=== PATIENT | male | born 1960 | race Caucasian/White ===

== ENCOUNTER 2017-12-17 11:46 | Emergency (ER) | payer OTHER ==
--- NOTE | 2017-12-17 12:21 | ERPHSYRPT ---
- History of Present Illness Time Seen by Provider: 12/17/17 12:13 Patient Subjective Stated Complaint: PT states "I was walking down stairs and felt a pop and stumbled three steps then I could not stand." Triage Nursing Assessment: PT alert and oriented X 3, skin pwd. PT has deformity noted to left knee, CSM X 4. Pt last ate a cupcake this morning and had a cup of coffee. Physician History: patient arrives with complaint of pain some stairs at work this occurred approximately one hour ago Method of Injury: other (walking down stairs heard a pop) Occurred: just prior to arrival (one hour prior to arrival) Lower Extremities Pain: knee: left Associated Symptoms: unable to bear weight Allergies/Adverse Reactions: No Known Drug Allergies Allergy (Unverified 12/17/17 12:09) Home Medications: No Reportable Medications [No Reported Medications] 12/17/17 [History] Hx Tetanus, Diphtheria Vaccination/Date Given: No Hx Influenza Vaccination/Date Given: No Hx Pneumococcal Vaccination/Date Given: No Immunizations Up to Date: Yes - Review of Systems Constitutional: No Fever, No Chills Eyes: No Symptoms Ears, Nose, & Throat: No Symptoms Respiratory: No Cough, No Dyspnea Cardiac: No Chest Pain, No Edema, No Syncope Abdominal/Gastrointestinal: No Abdominal Pain, No Nausea, No Vomiting, No Diarrhea Genitourinary Symptoms: No Dysuria Musculoskeletal: Joint Pain (left knee pain and swelling) Skin: No Rash Neurological: No Dizziness, No Focal Weakness, No Sensory Changes Psychological: No Symptoms Endocrine: No Symptoms All Other Systems: Reviewed and Negative - Past Medical History Pertinent Past Medical History: No - Past Surgical History Past Surgical History: Yes Other Surgical History: left hip, plate put in - Social History Smoking Status: Never smoker Exposure to second hand smoke: Yes Drug Use: none Patient Lives Alone: No - Nursing Vital Signs Nursing Vital Signs: Initial Vital Signs Temperature 97.8 F 12/17/17 12:01 Pulse Rate 74 12/17/17 12:01 Respiratory Rate 18 12/17/17 12:01 Blood Pressure 96/71 12/17/17 12:01 O2 Sat by Pulse Oximetry 98 12/17/17 12:01 Pain Scale Pain Intensity 6 - Physical Exam General Appearance: mild distress Eyes, Ears, Nose, Throat Exam: moist mucous membranes Neck Exam: non-tender, supple Cardiovascular/Respiratory Exam: chest non-tender, normal breath sounds, regular rate/rhythm, no respiratory distress Gastrointestinal/Abdominal Exam: non-tender, guarding Back Exam: normal inspection, No vertebral tenderness Hips Exam: bilateral: non-tender, normal inspection, normal range of motion, no evidence of injury Legs Exam: bilateral leg: non-tender, normal inspection, normal range of motion , no evidence of injury Knees Exam: right knee: non-tender, normal inspection, normal range of motion, no evidence of injury, left knee: bone tenderness (left knee tender anteriorly) , pain (pain with palpation left knee anteriorly), swelling (edema overlying left patella) Ankle Exam: bilateral ankle: non-tender, normal inspection, normal range of motion, no evidence of injury Foot Exam: bilateral foot: non-tender, normal inspection, normal range of motion , no evidence of injury Neuro/Tendon Exam: normal sensation Mental Status Exam: alert, oriented x 3, cooperative Skin Exam: normal color, warm, dry SpO2 Interpretation: normal (98%), borderline oxygenation SpO2: 98 Oxygen Delivery: Room Air - Course Nursing assessment & vital signs reviewed: Yes - Radiology Exams Left Knee X-ray Interpretation: Discussed w/ radiologist (three-view left knee: Minimal medial joint space narrowi tiny patellar spurring, tiny posterior fabella, no other bony, articular, or soft tissue abnormalities) Left Patella X-ray Interpretation: Discussed w/ radiologist ([place] viewof the left knee demonstrates lateral patellar tilting, shallow medial femoral groove, and prepatellar soft tissue swelling. No other bony, articular, or soft tissue abnormalities) Left Elbow X-ray Interpretation: Discussed w/ radiologist (x-ray left elbow: Small olecranon process spurring and lesser degree coronoid process. Posterior soft tissue swelling and a few soft tissue calcification posterior to the distal humerus of uncertain etiology. No other bony, articular, or soft tissue abnormalities ) Ordered Tests: Active Orders 24 hr Category Date Time Status Bonilla Bandage Application -[facility] STAT Care 12/17/17 13:32 Active Immobilizer STAT Care 12/17/17 13:32 Active ELBOW (MINIMUM 3 VIEWS) Routine Exams 12/17/17 13:00 Completed KNEE (1 OR 2 VIEW) Routine Exams 12/17/17 12:50 Completed KNEE (3 VIEWS) Stat Exams 12/17/17 12:12 Completed - Progress Progress: improved Progress Note: 12/17/17 12:20 This is a 57-year-old white male he arrives with complaint of pain in his left knee which began while he was walking downstairs at work he states he felt a pop and then could only take several steps as he stumbled down stairs he is unable to walk on his left leg he has a moderate amount of edema on the anterior left knee overlying the patella he has tenderness with palpation. . he is not moving his left knee secondary to pain. Patient does have some calluses formed on both knees. He has good capillary refill to all toes somnolent dorsal pedal posterior tibial pulses are intact 2 over 4. I've offered the patient Toradol injection he does not want any pain medications at this time. 12/17/17 13:36 Patient without fracture or dislocation of the left knee, patellar, or elbow. Patient did complain of elbow pain while in x-ray he has some mild edema posteriorly has full range of motion to the left elbow hand wrist fingers. Will go ahead and place Bonilla wrap on the patient's left knee give him a left knee immobilizer. I have offered the patient Naprosyn for pain he does not want this he will take Advil instead. Patient will need to follow-up with his family doctor or company physician in a few days. Left knee was reexamined the stable to anterior drawer posterior drawer medial collateral ligament stress and lateral collateral ligament stress. 12/17/17 14:01 patient will be given crutches with weight bearing as tolerated. - Departure Time of Disposition: 13:37 Departure Disposition: Home Clinical Impression: Accidental fall Qualifiers: Encounter type: initial encounter Qualified Code(s): W19.XXXA - Unspecified fall, initial encounter Contusion of left knee Qualifiers: Encounter type: initial encounter Qualified Code(s): S80.02XA - Contusion of left knee, initial encounter Strain of left knee Qualifiers: Encounter type: initial encounter Qualified Code(s): S86.912A - Strain of unspecified muscle(s) and tendon(s) at lower leg level, left leg, initial encounter Contusion of left elbow Qualifiers: Encounter type: initial encounter Qualified Code(s): S50.02XA - Contusion of left elbow, initial encounter Condition: Fair Critical Care Time: No Referrals: Provider,Unknown [Primary Care Provider] - Instructions: Knee Sprain (DC), Knee Pain (DC) Additional Instructions: Return home. Ice to left knee left elbow 24-48 hours. Advil (otc) 2-3 tablets orally every 6 hours with food for 5 days. Follow-up with your company physician or family physician in 2-3 days. Return for acute distress or for severe symptoms.
--- NOTE | 2017-12-17 12:41 | XRAY ---
Indication: "Knee gave out" climbing steps. Comparison: None 3 views of the left knee demonstrates minimal medial joint space narrowing, tiny patellar spurring, and tiny posterior fabella. No other bony, articular, or soft tissue abnormalities.
--- NOTE | 2017-12-17 13:20 | XRAY ---
Indication: Pain and swelling following fall. Comparison: None 3 views of the left elbow demonstrates small olecranon process spurring and lesser degree coronoid process. Posterior soft tissue swelling and a few soft tissue calcifications posterior to the distal humerus of uncertain etiology. No other bony, articular, or soft tissue abnormalities.
--- NOTE | 2017-12-17 13:23 | XRAY ---
Indication: Pain following fall. Comparison: None [place] view of the left knee demonstrates lateral patellar tilting, shallow medial femoral groove, and prepatellar soft tissue swelling. No other bony, articular, or soft tissue abnormalities.
[2017-12-17 13:43] VITALS: BP 121/74; PULSE 66
[2017-12-17 14:01] VITALS: O2SAT 98
== END 2017-12-17 14:08 | disposition home or self-care (01) ==
LOC: ED 11:46
DX: S80.02XA Contusion of left knee, initial encounter (principal); S86.912A Strain of unspecified muscle(s) and tendon(s) at lower leg level, left leg, initial encounter; S50.02XA Contusion of left elbow, initial encounter; W01.0XXA Fall on same level from slipping, tripping and stumbling without subsequent striking against object, initial encounter; W19.XXXA Unspecified fall, initial encounter; Y92.29 Other specified public building as the place of occurrence of the external cause
CPT/HCPCS: 73080; 73560; 73562; 99283; L1830

== ENCOUNTER 2023-02-06 10:04 | Emergency (ER) | payer BC ==
[2023-02-06] MEDS ORDERED: Zofran 4 MG/2 ML VIAL IV ONE (10:29)
[2023-02-06] MEDS ORDERED: Hydromorphone 1 mg/ml Injection IV ONE (10:29)
[2023-02-06] MEDS ORDERED: Sodium Chloride 0.9% 1000 ML 1,000 ML IV SCH (10:30)
[2023-02-06] MEDS ORDERED: Hydromorphone 1 mg/ml Injection ONE (10:37)
[2023-02-06] MEDS ORDERED: Sodium Chloride 0.9% 1000 ML 1,000 ML ONE (10:37)
[2023-02-06] MEDS ORDERED: Zofran 4 MG/2 ML VIAL ONE (10:37)
[2023-02-06 10:40] LABS: Absolute Neutrophil Ct (ANC) 5.54 x10^3/uL (1.4-6.9); BASOPHIL % 0.3 % (0.0-0.4); Basophil (Absolute #) 0.02 x10^3/uL (0-0.4); Eosinophil % 1.8 % (0.00-5.0); Eosinophil (Absolute #) 0.14 x10^3/uL (0-0.5); Hematocrit 42.7 % (42-50); Hemoglobin 13.8 g/dL (12.5-18.0); IMMATURE GRAN # 0.02 x10^3u/L (0.00-0.03); IMMATURE GRAN % 0.3 % (0.00-0.4); Lymphocyte (Absolute #) 1.36 x10^3/uL (1.0-4.6); Lymphocytes % 17.3 % (24.0-44.0); Mean Cell Volume 88.4 fL (78-100); Mean Corpuscular Hemoglobin 28.6 pg (26-32); Mean Corpuscular Hgb Concent. 32.3 g/dL (32-36); Mean Platelet Volume 10.1 fL (7.5-11.0); Monocyte (Absolute #) 0.77 x10^3/uL (0.0-1.3); Monocytes % 9.8 % (0.0-12.0); Neutrophil % 70.5 % (36.0-66.0); Platelet Count 221 x10^3/uL (150-450); Red Blood Count 4.83 x10^6/uL (4.1-5.6); Red Cell Distribution Width 12.9 % (11.5-14.0); White Blood Count 7.9 x10^3/uL (4.0-10.5)
--- NOTE | 2023-02-06 10:41 | ERPHSYRPT ---
- History of Present Illness Time Seen by Provider: 02/06/23 10:38 Historian: patient, family Exam Limitations: no limitations Physician History: Patient is a 63-year-old white male who presents with a complaint of abdominal pain which started Bg or 4 days ago the pain is very generalized not localized at all associated with nausea vomiting diarrhea but he denies any fever chills or sweats. He also says that he has never had any type of abdominal surgery. Timing/Duration: day(s) (4) Activities at Onset: none Quality: cramping, sharpness Abdominal Pain Onset Location: generalized abdomen Pain Radiation: no radiation Severity of Pain-Max: moderate Severity of Pain-Current: moderate Modifying Factors: Improves With: vomiting Associated Symptoms: diarrhea, nausea, vomiting Previous symptoms: no prior history Allergies/Adverse Reactions: No Known Drug Allergies Allergy (Verified 02/06/23 10:32) Hx Tetanus, Diphtheria Vaccination/Date Given: No Hx Influenza Vaccination/Date Given: No Hx Pneumococcal Vaccination/Date Given: No - Review of Systems Constitutional: No Fever, No Chills Eyes: No Symptoms Ears, Nose, & Throat: No Symptoms Respiratory: No Cough, No Dyspnea Cardiac: No Chest Pain, No Edema, No Syncope Abdominal/Gastrointestinal: Abdominal Pain, Nausea, Vomiting, Diarrhea, Other (Distention) Genitourinary Symptoms: No Dysuria Musculoskeletal: No Back Pain, No Neck Pain Skin: No Rash Neurological: No Dizziness, No Focal Weakness, No Sensory Changes Psychological: No Symptoms Endocrine: No Symptoms All Other Systems: Reviewed and Negative - Past Medical History Pertinent Past Medical History: No Neurological History: No Pertinent History Cardiac History: No Pertinent History Respiratory History: No Pertinent History Endocrine Medical History: No Pertinent History Musculoskeletal History: Fractures - Past Surgical History Past Surgical History: Yes Other Surgical History: left hip, plate put in - Social History Smoking Status: Never smoker Exposure to second hand smoke: Yes Drug Use: none Patient Lives Alone: No - Nursing Vital Signs Nursing Vital Signs: Initial Vital Signs Temperature 98.2 F 02/06/23 10:05 Pulse Rate 70 02/06/23 10:05 Respiratory Rate 18 02/06/23 10:05 Blood Pressure 138/87 02/06/23 10:05 O2 Sat by Pulse Oximetry 96 02/06/23 10:05 Pain Scale Pain Intensity 3 - Physical Exam General Appearance: mild distress, alert Eye Exam: PERRL/EOMI, eyes nml inspection Ears, Nose, Throat Exam: normal ENT inspection, pharynx normal, moist mucous membranes Neck Exam: normal inspection, non-tender, supple, full range of motion Respiratory Exam: normal breath sounds, lungs clear, No respiratory distress Cardiovascular Exam: regular rate/rhythm, normal heart sounds Gastrointestinal/Abdomen Exam: tenderness, distention, guarding, rebound, other (Decreased bowel sounds), No mass, No pulsatile mass Male Genitalia Exam: normal genitalia Back Exam: normal inspection, normal range of motion, No CVA tenderness, No vertebral tenderness Extremity Exam: normal inspection, normal range of motion, pelvis stable Neurologic Exam: alert, oriented x 3, cooperative, normal mood/affect, nml cerebellar function, sensation nml, No motor deficits Skin Exam: normal color, warm, dry - Course Nursing assessment & vital signs reviewed: Yes EKG Interpreted by Me: RATE (75), Left [place] Deviation, NORMAL INTERVALS, Non- specific ST Changes - Radiology Exams Chest X-ray Interpretation: Reviewed by me - CT Exams Abdomen/Pelvis CT Interpretation: Other (Findings consistent with enteritis) Ordered Tests: Active Orders 24 hr Category Date Time Status EKG-ER Only STAT Care 02/06/23 10:29 Active IV Insertion STAT Care 02/06/23 10:29 Active ABDOMEN AND PELVIS W CONTRAST [CT] Stat Exams 02/06/23 10:29 Completed CHEST 1 VIEW (PORTABLE) Stat Exams 02/06/23 10:29 Completed AMYLASE Stat Lab 02/06/23 10:30 Completed CBC W DIFF Stat Lab 02/06/23 10:30 Completed CMP Stat Lab 02/06/23 10:30 Completed LIPASE Stat Lab 02/06/23 10:30 Completed Lactic Acid Stat Lab 02/06/23 10:42 Completed TROPONIN Q4H Lab 02/06/23 10:30 Completed TROPONIN Q4H Lab 02/06/23 14:30 Ordered TROPONIN Q4H Lab 02/06/23 18:30 Ordered UA W/RFX UR CULTURE Stat Lab 02/06/23 10:34 Completed Medication Summary Generic Name Dose Route Start Last Admin Trade Name Freq PRN Reason Stop Dose Admin Sodium Chloride 1,000 mls @ 100 mls/hr 02/06/23 10:30 02/06/23 12:44 Sodium Chloride 0.9% 1000 Ml IV 03/08/23 10:29 999 mls/hr .Q10H LENI Infusion Metronidazole 500 mg in 100 mls @ 200 mls/hr 02/06/23 12:44 Flagyl 500 Mg Ivpb IV 02/06/23 13:13 STAT STA Discontinued Medications Generic Name Dose Route Start Last Admin Trade Name Freq PRN Reason Stop Dose Admin Hydromorphone HCl 1 mg 02/06/23 10:29 02/06/23 10:39 Hydromorphone 1 Mg/1ml Inj IV 02/06/23 10:30 1 mg STAT ONE Administration Hydromorphone HCl Confirm 02/06/23 10:37 Hydromorphone 1 Mg/1ml Inj Administered 02/06/23 10:38 Dose 1 mg .ROUTE .STK-MED ONE Ondansetron HCl 4 mg 02/06/23 10:29 02/06/23 10:39 Ondansetron Hcl 4 Mg/2 Ml Vial IV 02/06/23 10:30 4 mg STAT ONE Administration Ondansetron HCl Confirm 02/06/23 10:37 Ondansetron Hcl 4 Mg/2 Ml Vial Administered 02/06/23 10:38 Dose 4 mg .ROUTE .STK-MED ONE Lab/Rad Data: Laboratory Result Diagrams 02/06/23 10:30 02/06/23 10:30 Laboratory Results 02/06/23 02/06/23 02/06/23 Range/Units 10:42 10:34 10:30 WBC (4.0-10.5) x10^3/uL RBC (4.1-5.6) x10^6/uL Hgb (12.5-18.0) g/dL Hct (42-50) % MCV (78-100) fL MCH (26-32) pg MCHC (32-36) g/dL RDW (11.5-14.0) % Plt Count (150-450) x10^3/uL MPV (7.5-11.0) fL Gran % (36.0-66.0) % Immature Gran % (Auto) (0.00-0.4) % Nucleat RBC Rel Count (0.00-0.1) % Eos # (Auto) (0-0.5) x10^3/uL Immature Gran # (Auto) (0.00-0.03) x10^3u/L Absolute Lymphs (auto) (1.0-4.6) x10^3/uL Absolute Monos (auto) (0.0-1.3) x10^3/uL Absolute Nucleated RBC (0.00-0.01) x10^3u/L Lymphocytes % (24.0-44.0) % Monocytes % (0.0-12.0) % Eosinophils % (0.00-5.0) % Basophils % (0.0-0.4) % Absolute Granulocytes (1.4-6.9) x10^3/uL Basophils # (0-0.4) x10^3/uL Sodium (137-145) mmol/L Potassium (3.5-5.1) mmol/L Chloride (98-107) mmol/L Carbon Dioxide (22-30) mmol/L Anion Gap (5-15) MEQ/L BUN (9-20) mg/dL Creatinine (0.66-1.25) mg/dL Estimated GFR ML/MIN Glucose (74-106) mg/dL Lactic Acid 1.3 (0.4-2.0) Calcium (8.4-10.2) mg/dL Total Bilirubin (0.2-1.3) mg/dL AST (17-59) U/L ALT (0-50) U/L Alkaline Phosphatase (38-126) U/L Troponin I < 0.012 (0.000-0.034) ng/mL Serum Total Protein (6.3-8.2) g/dL Albumin (3.5-5.0) g/dL Amylase (30-110) U/L Lipase (23-300) U/L Urine Color Dark Yellow (Yellow) Urine Appearance Clear (Clear) Urine pH 5.5 (4.6-8.0) Ur Specific [place] >=1.030 A (1.005-1.030) Urine Protein Negative (Negative) Urine Glucose (UA) Negative (Negative) mg/dL Urine Ketones Trace A (Negative) Urine Blood Negative (Negative) Urine Nitrite Negative (Negative) Urine Bilirubin Small A (Negative) Urine Urobilinogen 1.0 A (0.2) mg/dL Ur Leukocyte Esterase Negative (Negative) U Hyaline Cast (Auto) NONE SEEN (0-2) /LPF Urine Microscopic RBC 0-2 (0-5) /HPF Urine Microscopic WBC 0-2 (0-5) /HPF Ur Epithelial Cells None Seen (None Seen) /HPF Urine Bacteria None Seen (None Seen) /HPF Urine Culture Reflexed NO (NO) 02/06/23 02/06/23 Range/Units 10:30 10:30 WBC 7.9 (4.0-10.5) x10^3/uL RBC 4.83 (4.1-5.6) x10^6/uL Hgb 13.8 (12.5-18.0) g/dL Hct 42.7 (42-50) % MCV 88.4 (78-100) fL MCH 28.6 (26-32) pg MCHC 32.3 (32-36) g/dL RDW 12.9 (11.5-14.0) % Plt Count 221 (150-450) x10^3/uL MPV 10.1 (7.5-11.0) fL Gran % 70.5 H (36.0-66.0) % Immature Gran % (Auto) 0.3 (0.00-0.4) % Nucleat RBC Rel Count 0.0 (0.00-0.1) % Eos # (Auto) 0.14 (0-0.5) x10^3/uL Immature Gran # (Auto) 0.02 (0.00-0.03) x10^3u/L Absolute Lymphs (auto) 1.36 (1.0-4.6) x10^3/uL Absolute Monos (auto) 0.77 (0.0-1.3) x10^3/uL Absolute Nucleated RBC 0.00 (0.00-0.01) x10^3u/L Lymphocytes % 17.3 L (24.0-44.0) % Monocytes % 9.8 (0.0-12.0) % Eosinophils % 1.8 (0.00-5.0) % Basophils % 0.3 (0.0-0.4) % Absolute Granulocytes 5.54 (1.4-6.9) x10^3/uL Basophils # 0.02 (0-0.4) x10^3/uL Sodium 140 (137-145) mmol/L Potassium 4.4 (3.5-5.1) mmol/L Chloride 102 (98-107) mmol/L Carbon Dioxide 30 (22-30) mmol/L Anion Gap 12.3 (5-15) MEQ/L BUN 20 (9-20) mg/dL Creatinine 0.91 (0.66-1.25) mg/dL Estimated GFR > 60.0 ML/MIN Glucose 131 H (74-106) mg/dL Lactic Acid (0.4-2.0) Calcium 9.0 (8.4-10.2) mg/dL Total Bilirubin 0.40 (0.2-1.3) mg/dL AST 32 (17-59) U/L ALT 37 (0-50) U/L Alkaline Phosphatase 70 (38-126) U/L Troponin I (0.000-0.034) ng/mL Serum Total Protein 7.7 (6.3-8.2) g/dL Albumin 4.1 (3.5-5.0) g/dL Amylase 53 (30-110) U/L Lipase 74 (23-300) U/L Urine Color (Yellow) Urine Appearance (Clear) Urine pH (4.6-8.0) Ur Specific [place] (1.005-1.030) Urine Protein (Negative) Urine Glucose (UA) (Negative) mg/dL Urine Ketones (Negative) Urine Blood (Negative) Urine Nitrite (Negative) Urine Bilirubin (Negative) Urine Urobilinogen (0.2) mg/dL Ur Leukocyte Esterase (Negative) U Hyaline Cast (Auto) (0-2) /LPF Urine Microscopic RBC (0-5) /HPF Urine Microscopic WBC (0-5) /HPF Ur Epithelial Cells (None Seen) /HPF Urine Bacteria (None Seen) /HPF Urine Culture Reflexed (NO) - Progress Progress: improved Medical Desision Making - Independent Historian Additional History obtained from: Spouse - Diagnostic Testing Diagnostic test were ordered, analyzed, and reviewed by me: Yes Radiological Interpretation: Reviewed by me - Risk of complications Low Risk: Low risk of morbidity from additional dx testing or treatment - Departure Departure Disposition: Home Clinical Impression: Enteritis Condition: Stable Critical Care Time: No Referrals: DOCTOR,NO FAMILY [NON-STAFF PHY W/O PRIVILEGES] - Follow up/PCP as directed Instructions: Severe Abdominal Pain, Inflammatory Bowel Disease (DC) Prescriptions: Ondansetron ODT 4 MG [Zofran Odt 4 mg] 4 mg PO Q6H PRN PRN #10 tablet PRN Reason: Vomiting Metronidazole 500 mg [Flagyl 500 MG] 500 mg PO TID #21 tablet Hydrocodone/Acetaminophen [Hydrocodone-Acetamin 7.5-325] 1 each PO Q6H 3 Days #12 tablet MDD 4
[2023-02-06 10:54] LABS: ALBUMIN 4.1 g/dL (3.5-5.0); ALKALINE PHOSPHATASE 70 U/L (38-126); AMYLASE 53 U/L (30-110); ANION GAP 12.3 MEQ/L (5-15); BLOOD UREA NITROGEN 20 mg/dL (9-20); CHLORIDE 102 mmol/L (98-107); Carbon Dioxide 30 mmol/L (22-30); Creatinine 1 0.91 mg/dL (0.66-1.25); EST GLOMERULAR FILTRATION RATE > 60.0 ML/MIN; Glucose 131 mg/dL (74-106); LIPASE 74 U/L (23-300); Potassium 4.4 mmol/L (3.5-5.1); SGOT/AST 32 U/L (17-59); SGPT/ALT 37 U/L (0-50); SODIUM 140 mmol/L (137-145); Total Protein 7.7 g/dL (6.3-8.2)
[2023-02-06 11:02] LABS: ADD URINE CULTURE? NO (NO); Appearance Clear (Clear); Bacteria None Seen /HPF (None Seen); Bilirubin Small (Negative); Blood Negative (Negative); Epithelial Cells None Seen /HPF (None Seen); Glucose, Urine Negative (Negative); Hyaline Casts NONE SEEN /LPF (0-2); Ketones Trace (Negative); Leukocyte Esterase Negative (Negative); Nitrite Negative (Negative); Ph 5.5 (4.6-8.0); Protein,Urine Dip Negative (Negative); RBC 0-2 /HPF (0-5); Specific Gravity >=1.030 (1.005-1.030); WBC 0-2 /HPF (0-5)
--- NOTE | 2023-02-06 12:34 | XRAY ---
Indication: Abdomen pain 4 days. Multiple contiguous axial images obtained through the abdomen and pelvis using 80 cc Isovue 370 contrast. Comparison: None Lung bases hyperinflated with minimal bibasilar fibrosis/scarring. Heart not enlarged. Small hiatal hernia. Noncontrasted stomach and bowel loops appear nonobstructed. Several jejunal and ileal bowel loops are mildly fluid distended up to 3 cm with mild circumferential wall thickening and fluid leveling favoring enteritis. Normal appendix. Scattered descending and sigmoid diverticulosis without diverticulitis. No free fluid/air. Incidental tiny hepatic/splenic calcified granulomas. Remaining liver, gallbladder, pancreas, spleen, adrenal glands, kidneys, ureters, and bladder are unremarkable. Minimal aortoiliac calcifications. No AAA or pathologic retroperitoneal lymphadenopathy. Osseous structures intact with minimal/mild degenerative changes throughout thoracolumbar spine. Old left innominate bone fracture with intact fixation plate/screws. Impression: 1. Mild enteritis without complications. 2. Chronic findings including small hiatal hernia, colonic diverticulosis, arteriosclerotic disease, chronic bony findings, and old granulomatous disease.
--- NOTE | 2023-02-06 12:36 | XRAY ---
Indication: Abdomen pain. Comparison: None Portable apical lordotic chest demonstrates minimal left base subsegmental atelectasis/scarring and a few incidental tiny calcified granulomas. No focal infiltrate, consolidation, or large effusion. Heart not enlarged. Bony thorax intact with osteopenia and mild degenerative changes. Impression: Nonacute chest with chronic features.
[2023-02-06] MEDS ORDERED: FLAGYL 500 MG IVPB 500 MG/100 ML BAG IV STA (12:44)
[2023-02-06] MEDS ORDERED: FLAGYL 500 MG IVPB 500 MG/100 ML BAG IV ONE (12:48)
[2023-02-06 13:36] VITALS: BP 137/84; PULSE 68; O2SAT 95
== END 2023-02-06 13:40 | disposition home or self-care (01) ==
LOC: ED 10:04
DX: K52.9 Noninfective gastroenteritis and colitis, unspecified (principal); R10.84 Generalized abdominal pain; R11.2 Nausea with vomiting, unspecified; Z79.891 Long term (current) use of opiate analgesic
CPT/HCPCS: 36000; 36415; 71045; 74177; 80053; 81001; 82150; 83605; 83690; 84484; 85025; 93005; 96365; 96374; 96375; 99284; J1170; J2405